=== PATIENT | female | born 1930 | race Caucasian/White ===

== ENCOUNTER 2016-11-30 10:47 | Emergency (ER) | payer MEDICARE, BC ==
[~2016-11-30 10:47] MED LIST: BACTRIM DS TAB1 EAC2 PO; CALCIUM; CALCIUM500 M3 PO; ESTRACE0.5 MG; FOSAMAX70 MG; GLUCOSAMINE CH1 EAC6 PO; MACROBID 100 M100 M1 PO; MULTIVITAMIN1 CAP; OCUVITE SOFTGE1 EACH PO; OXYBUTYNIN CHLO15 M1 PO; PROGESTERONE; SYNTHROID50 MCG; SYNTHROID75 MC1 PO; VITAMIN C500 M3 PO; VITAMIN D5000 UNI1 PO; [UNRECOGNIZED DRUG - OTHER]
[2016-11-30] MEDS ORDERED: VESICARE5 M1 PO (11:05)
[2016-11-30 12:59] LABS: BASO % 0.3 % (0-2); EOS % 0.7 % (0-7); EOSINOPHIL ABSOLUTE COUNT 0.1 tho/cmm (0.0-0.7); HCT-HEMATOCRIT 41.6 % (34.0-49.0); HGB-HEMOGLOBIN 14.3 gm/dl (12.0-15.5); IMMATURE GRANULOCYTES ABSOLUTE 0.01 tho/cmm (0-0.03); IMMATURE GRANULOCYTES PERCENT 0.1 % (0-0.3); LYMPH % 22.5 % (20-45); LYMPH ABSOLUTE COUNT 1.5 tho/cmm (0.8-4.5); MCHC MEAN CORPUSCULAR HGB CONC 34.4 % (32.0-36.0); MCV (MEAN CELL VOLUME) 84.4 fl (82.0-96.0); MEAN PLATELET VOLUME 9.5 cmc (9.4-12.4); MONO % 8.4 % (0-12); MONOCYTE ABSOLUTE COUNT 0.6 tho/cmm (0.0-1.2); NEUTROPHIL ABSOLUTE COUNT 4.6 tho/cmm (1.6-8.0); NEUTROPHIL-AUTOMATED 4.6 tho/cmm (1.6-8.0); PLATELET COUNT 216 tho/cmm (150-450); RED BLOOD COUNT 4.93 mil/cmm (4.00-5.20); WHITE BLOOD COUNT 6.8 tho/cmm (4.0-10.0)
[2016-11-30 13:11] LABS: ANION GAP 8 mmol/L (0-20); BLOOD UREA NITROGEN 16 mg/dl (6-24); CALCIUM 9.9 mg/dl (8.5-10.5); CARBON DIOXIDE-VENOUS 31 mmol/L (22-32); CHLORIDE 103 mmol/l (96-110); CREATININE 0.57 mg/dl (0.50-1.10); GLUCOSE 92 mg/dL (70-110); POTASSIUM 3.9 mmol/L (3.7-5.1); SODIUM 138 mmol/L (135-145); eGFR VALUE FOR BLACK >90 mL/Min
== END 2016-11-30 13:25 ==
LOC: EDMED 10:47
PROVIDERS: Emergency Medicine
DX: R42 Dizziness and giddiness (principal); H26.9 Unspecified cataract; E07.9 Disorder of thyroid, unspecified; Z79.890 Hormone replacement therapy; Z79.899 Other long term (current) drug therapy
CPT/HCPCS: G8978-GP-CJ; G8979-GP-CJ; G8980-GP-CJ